=== PATIENT | female | born 1950 | race Caucasian/White ===

== ENCOUNTER → 2016-11-23 | Day surgery (SDC) | payer OTHER ==
[2016-11-20 12:37] VITALS: BMI 36.0
[~2016-11-23] VITALS: Ht 162.6 cm; Wt 95.0 kg
[~2016-11-23] MED LIST: ADVIN10/60 INH; AMLO-110 PO; ATROPINE SULFATE 0.1 MG/ML 5ML SYR IV PRN; BACITRACIN OINT 15 GM TUBE ONE; BUPIVACAINE 0.5 % 5 MG/1 ML MPF 30ML VIAL ONE; CARI350T28 PO; CLINDAMYCIN 600 MG/54 ML D5W IV ONE; CLINDAMYCIN IV 900 MG in DEXTROSE 5% ADD-VANTAGE 100ML 100 ML IV SCH; CLON0.5T3 PO; CYM/30 PO; FENTANYL CITRATE INJ 50 MCG/1 ML 2 ML VIAL IV PRN; FENTANYL CITRATE INJ 50 MCG/1 ML 2 ML VIAL ONE; FRS/40 PO; GLC/500 PO; HYDR12.55 PO; LACTATED RINGER'S 1000ML 1,000 ML IV SCH; LEVO75TA PO; LEVO75TA5 PO; LIDOCAINE HCL 1% 20 ML VIAL ONE; LIDOCAINE HCL 2% 2 ML VIAL (20MG/ML) ONE; LISI20TA3 PO; LOSA1TAB PO; MIDAZOLAM HCL 1 MG/ML 2ML VIAL ONE; MoRPHine SULFATE 2 MG/ML CARP IV PRN; MoRPHine SULFATE 4 MG/ML 1 ML CARP\\VIAL IV PRN; ONDA8TAB6 PO; ONDANSETRON INJ 2 MG/ML 2 ML VIAL IV PRN; ONDANSETRON INJ 2 MG/ML 2 ML VIAL ONE; OXYC-106 PO; OXYC7.5T65 PO; POTA20TA16 PO; PRLSR20 PO; PROM25TA9 PO; PROPOFOL IV EMULSION 10 MG/ML 20 ML VIAL IV ONE; SIMV20TA2 PO; SODIUM CHLORIDE 0.9% 1000ML 1,000 ML IV SCH; SYN75 PO; VENL150C PO; VNTHFA/IN INH; VSC/5 PO; ventolin inhaler INH
--- NOTE | 2016-11-23 12:01 | History & Physical Bridge Note ---
H&P Re-Evaluation Bridge Note: I have examined the patient, reviewed the History & Physical and in the interval since the performance of the History & Physical I have noted the following changes of clinical significance: No changes noted
[2016-11-23 12:04] VITALS: BP 172/88; PULSE 78; TEMP 36.8; O2SAT 96; Ht 162.6 cm; Wt 95.0 kg
--- NOTE | 2016-11-23 13:45 | Discharge Instructions ---
Discharge Instructions Date of Service Nov 23, 2016. Visit Reason for Visit: Diffuse Large B-Cell Lymphoma Discharge Discharge Diagnosis / Problem: S/P insertion port Discharge Goals Goal(s): Decrease discomfort, Improve function Activity Recommendations Activity Limitations: per Instructions/Follow-up section Lifting Limitations: none, gradually increase as tolerated Exercise/Sports Limitations: rest today, gradually increase as tolerated May Resume Sexual Activity: when tolerated Shower/Bathe: may shower/bathe in 3 days Driving or Machine Use: resume 3 days after discharge Anesthesia . Post Anesthesia Instructions: If you have had General Anesthesia or IV Sedation: * Do not drive today. * Resume driving when surgeon permits. * Do not make important decisions or sign legal documents today. * Call surgeon for: 1. Temperature elevations greater than 101 degrees F. 2. Uncontrollable pain. 3. Excessive bleeding. 4. Persistent nausea and vomiting. 5. Medication intolerance (nausea, vomiting or rash). * For nausea and vomiting use only clear liquids such as: tea, soda, bouillon until nausea subsides, then gradually increase diet as tolerated. * If you have any concerns or questions, call your surgeon's office. If physician is unavailable and it is an emergency, call 911 or go to the nearest emergency room. . Instructions / Follow-Up Instructions / Follow-Up keep the dressing on for 4 days, she can take a shower on 11/28/2016, follow up me in 1 week, . take po tylenol 650 mg po q6h as need for pain for 3 days only, Diet Recommendations Recommended Home Diet: resume previous diet Procedures Procedures Performed: Insertion of Infusaport Right Internal Jugular Pending Studies Studies pending at discharge: no Medical Emergencies . Who to Call and When: Medical Emergencies: If at any time you feel your situation is an emergency, please call 911 immediately. . Non-Emergent Contact Non-Emergency issues call your: Surgeon Call Non-Emergent contact if: you have a fever, temperature is above 100.5, your pain is not controlled, wound has increased drainage, wound has increased redness [phone] . . "Provider Documentation" section prepared by Lillie Arceo. . [place] Drug Monitoring Program Search Results: no issues identified
--- NOTE | 2016-11-23 13:47 | [facility] Post Operative Brief Note ---
Immediate Operative Summary Operative Date Nov 23, 2016. Pre-Operative Diagnosis Need for Long-Term Intravenous Access Post-Operative Diagnosis Need for Long-Term Intravenous Access Procedure(s) Performed Insertion of Infusaport Right Internal Jugular Surgeon Dr. Arceo Director Online Marketing Surgeon(s) none Estimated Blood Loss 5 ml Findings patent on right internal jungular vein Fluids (cc crystalloids) 500ml Specimens none per surgeon Drains none Anesthesia sadetion + local Complication(s) None Disposition Recovery Room / PACU
--- NOTE | 2016-11-23 13:59 | Anesthesiology Progress Note ---
Anesthesia Post Op Note Date & Time Nov 23, 2016 at 13:59 Vital Signs Pain Intensity: 0 Vital Signs Past 12 Hours Date Time Temp Pulse Resp B/P (MAP) Pulse Ox O2 Delivery O2 Flow Rate FiO2 11/23/16 13:55 36.4 59 16 122/74 99 Oxymask 3 11/23/16 13:45 59 16 130/81 100 Oxymask 5 11/23/16 13:39 36.2 69 16 145/85 98 Oxymask 10 11/23/16 12:04 36.8 78 20 172/88 (116) 96 Room Air Notes Mental Status: alert / awake / arousable, participated in evaluation Pt Amnestic to Procedure: Yes Nausea / Vomiting: adequately controlled Pain: adequately controlled Airway Patency, RR, SpO2: stable & adequate BP & HR: stable & adequate Hydration State: stable & adequate Anesthetic Complications: no major complications apparent
--- NOTE | 2016-11-23 14:16 | [facility] Operative Report ---
Operative Report Operative Date Nov 23, 2016. Pre-Operative Diagnosis Need for Long-Term Intravenous Access Post-Operative Diagnosis Need for Long-Term Intravenous Access Procedure(s) Performed Insertion of Infusaport Right Internal Jugular Surgeon Dr. Arceo Acquisitions Librarian Surgeon(s) none Estimated Blood Loss 5 ml Findings patent right internal jugular vein Fluids 500ml Specimens none per surgeon Drains none Anesthesia sadetion + local Complication(s) None Disposition Recovery Room / PACU Indications Patient is a 66 years old female older who needs port insertion insertion for chemotherapy. I discussed with patient about benefits, risk and alternative of procedure, I indicated the risks may include but not limit such as bleeding, infection, blood clot, injury lung, dysfunction of catheter, patient understand, she signed informed consent and I answered all questions. Description of Procedure We bring patient to the OR, put patient on superior position on OR table. I use ultrasound to locate the right internal jugular vein and marked it, patient received a SCDon bilateral to prevent DVT also patient received 900 mg clindamycin IV for prophylactic antibiotic. then the patient right-sided neck and the right upper chest that was appropriate for firm routine sterilization after timeout to injections of local anesthesia by using 1% lidocaine mixed with 0.5% Marcaine on the right side neck , and make a small incision about 0.5 cm incision, then using ultrasound relocate the internal trocar vein use a 16- gauge needle punctures of right internal jugular vein, pass wire through needle , then remove the needle, then use of fluoroscopy to confirm the wire into his SVC and then injections are local anesthesia in her right upper chest to creat the port pouch and hemostatic was obtained, passed the catheter through 2 incisions, passed sheid through wire, then the wire was removed, passed the catheter through sheid, the shied was removed, using fluror to confirm the tip of catheter is located at junction of SVC and right atrium, size the catheter, connect the port to catheter, using 2-0 prolene to fix the port on chest wall, close subcutanous layer using 2-0 suture, and close skin using 4-0 suture, put the dressing on, patient tolearted the procedure well, patient was transfered to recovery room in stable condition, all instrument and needle, sponze count correct time 2. I attest to the content of the Intraoperative Record and any orders documented therein. Any exceptions are noted below.
[2016-11-23 14:25] VITALS: BP 119/80; PULSE 58; PULSE 63; TEMP 36.4; TEMP 36.6; O2SAT 93
--- NOTE | 2016-11-23 14:34 | DIAGNOSTIC IMAGING REPORT ---
CHEST ONE VIEW PORTABLE CLINICAL HISTORY: Zhbesk-y-Pltb insertion. COMPARISON STUDY: No previous studies for comparison. FINDINGS: The tip of the right internal jugular Brlrqt-j-Fchp projects over the distal right internal jugular vein. There is no pneumothorax or pleural effusion. There is mild widening of right paratracheal stripe. Cardiac size is normal. There is no evidence of pulmonary edema. IMPRESSION: 1. No pneumothorax following placement of a right internal jugular Kgiomh-s-Yfni. Catheter tip projects over the distal right internal jugular vein. 2. Mild upper mediastinal widening. Electronically signed by: Boyd Clement M.D. 11/23/2016 2:33 PM Dictated Date/Time: 11/23/2016 2:31 PM
[2016-11-23 14:55] VITALS: BP 131/81; PULSE 67; O2SAT 91
[2016-11-23 15:10] VITALS: BP 112/79; PULSE 64; TEMP 36.6; O2SAT 93
== END | disposition home or self-care (01) ==
LOC: C.ACU 11:35
PROVIDERS: ATTEND Surgery
DX: C83.39 Diffuse large B-cell lymphoma, extranodal and solid organ sites (principal); I10 Essential (primary) hypertension; E11.9 Type 2 diabetes mellitus without complications; E03.9 Hypothyroidism, unspecified; F17.200 Nicotine dependence, unspecified, uncomplicated; F41.1 Generalized anxiety disorder; E78.00 Pure hypercholesterolemia, unspecified; J44.9 Chronic obstructive pulmonary disease, unspecified; Z72.0 Tobacco use; Z82.49 Family history of ischemic heart disease and other diseases of the circulatory system; Z80.3 Family history of malignant neoplasm of breast

== ENCOUNTER → 2017-02-09 | Outpatient (CLI) | payer OTHER ==
[~2017-02-09] MED LIST changes: -ATROPINE SULFATE 0.1 MG/ML 5ML SYR IV PRN; -BACITRACIN OINT 15 GM TUBE ONE; -BUPIVACAINE 0.5 % 5 MG/1 ML MPF 30ML VIAL ONE; -CLINDAMYCIN 600 MG/54 ML D5W IV ONE; -CLINDAMYCIN IV 900 MG in DEXTROSE 5% ADD-VANTAGE 100ML 100 ML IV SCH; -FENTANYL CITRATE INJ 50 MCG/1 ML 2 ML VIAL IV PRN; -FENTANYL CITRATE INJ 50 MCG/1 ML 2 ML VIAL ONE; -LACTATED RINGER'S 1000ML 1,000 ML IV SCH; -LIDOCAINE HCL 1% 20 ML VIAL ONE; -LIDOCAINE HCL 2% 2 ML VIAL (20MG/ML) ONE; -MIDAZOLAM HCL 1 MG/ML 2ML VIAL ONE; -MoRPHine SULFATE 2 MG/ML CARP IV PRN; -MoRPHine SULFATE 4 MG/ML 1 ML CARP\\VIAL IV PRN; -ONDANSETRON INJ 2 MG/ML 2 ML VIAL IV PRN; -ONDANSETRON INJ 2 MG/ML 2 ML VIAL ONE; -PROPOFOL IV EMULSION 10 MG/ML 20 ML VIAL IV ONE; -SODIUM CHLORIDE 0.9% 1000ML 1,000 ML IV SCH
--- NOTE | 2017-02-09 15:42 | DIAGNOSTIC IMAGING REPORT ---
A-PORT CHECK CLINICAL HISTORY: VASCULAR CATHETER DYSFUNCTION COMPARISON STUDY: Chest radiograph November 23, 2016. Fluoroscopy time: 1.5 minutes. FINDINGS: 8 fluoroscopic images were obtained. The patient's right internal jugular Njsizj-f-Yscn was cannulated by IV team. The position of the catheter has changed since exam November 23, 2016. The catheter is now coiled. The tip projects over the proximal right clavicle. However, the position is unclear on this examination. The catheter is intravenous in location. Apparent contrast extravasation from the catheter proximal to the tip is noted. This raises the possibility of catheter disruption. No contrast extravasation into the soft tissues was noted. IMPRESSION: Malpositioned right internal jugular Xsinig-z-Fjst. Catheter now coiled with indeterminate position of the tip and findings suggestive of catheter fracture/disruption. This catheter should not be utilized. Electronically signed by: Boyd Clement M.D. 02/09/2017 3:41 PM Dictated Date/Time: 02/09/2017 3:30 PM
== END | disposition home or self-care (01) ==
LOC: C.RAD 14:22
PROVIDERS: ATTEND Internal Medicine Hematology
DX: T82.42XA Displacement of vascular dialysis catheter, initial encounter (principal); Y82.8 Other medical devices associated with adverse incidents

== ENCOUNTER 2017-02-20 05:25 | Day surgery (SDC) | payer OTHER ==
[2017-02-16 09:27] VITALS: BMI 36.0
[~2017-02-20] VITALS: Ht 162.6 cm; Wt 95.0 kg
[~2017-02-20 05:25] MED LIST changes: -FRS/40 PO; -LEVO75TA5 PO; -LOSA1TAB PO; -OXYC7.5T65 PO; -VENL150C PO; -ventolin inhaler INH
[2017-02-20 05:52] VITALS: BP 149/88; PULSE 84; TEMP 36.7; O2SAT 99; Ht 162.6 cm; Wt 95.0 kg
[2017-02-20] MEDS ORDERED: LACTATED RINGER'S 1000ML 1,000 ML IV SCH (06:00)
[2017-02-20] MEDS ORDERED: CLINDAMYCIN 600 MG/54 ML D5W IV SCH (06:00)
[2017-02-20] MEDS ORDERED: BUPIVACAINE 0.5 % 5 MG/1 ML MPF 30ML VIAL ONE (06:35)
[2017-02-20] MEDS ORDERED: BACITRACIN OINT 15 GM TUBE ONE (06:35)
[2017-02-20] MEDS ORDERED: LIDOCAINE HCL 1% 20 ML VIAL ONE (06:35)
[2017-02-20] MEDS ORDERED: MIDAZOLAM HCL 1 MG/ML 2ML VIAL ONE (06:40)
[2017-02-20] MEDS ORDERED: PROPOFOL IV EMULSION 10 MG/ML 20 ML VIAL IV ONE ×4 (06:41→08:23)
[2017-02-20] MEDS ORDERED: LIDOCAINE HCL 2% 2 ML VIAL (20MG/ML) ONE (06:41)
[2017-02-20] MEDS ORDERED: FENTANYL CITRATE INJ 50 MCG/1 ML 2 ML VIAL ONE ×2 (06:41→08:44)
[2017-02-20] MEDS ORDERED: ONDANSETRON INJ 2 MG/ML 2 ML VIAL ONE (07:07)
[2017-02-20] MEDS ORDERED: ONDANSETRON INJ 2 MG/ML 2 ML VIAL IV PRN (08:30)
[2017-02-20] MEDS ORDERED: EpHEDrine SULFATE INJ 50 MG/ML AMP IV PRN (08:30)
[2017-02-20] MEDS ORDERED: PHENYLEPHRINE 100MCG/ML 5ML SYR IV PRN (08:30)
[2017-02-20] MEDS ORDERED: LABETALOL HCL IV 5 MG/ML 20ML IV PRN (08:30)
[2017-02-20] MEDS ORDERED: FLUMAZENIL 0.1 MG/1 ML 10 ML VIAL IV PRN (08:30)
[2017-02-20] MEDS ORDERED: MEPERIDINE HCL 25 MG/ML CARP IV PRN (08:30)
[2017-02-20] MEDS ORDERED: NALOXONE HCL 0.4 MG/1 ML VIAL/CARP IV PRN (08:30)
[2017-02-20] MEDS ORDERED: ATROPINE SULFATE 0.1 MG/ML 5ML SYR IV PRN (08:30)
[2017-02-20] MEDS ORDERED: OXYCODONE/ACETAMINOPHEN 5-325 TAB PO PRN (08:45)
--- NOTE | 2017-02-20 08:49 | Discharge Instructions ---
Discharge Instructions Date of Service Feb 20, 2017. Admission Reason for Admission: Aport Catheter Fracture Discharge Discharge Diagnosis / Problem: same Discharge Goals Goal(s): Decrease discomfort, Improve function Activity Recommendations Activity Limitations: as noted below No heavy lifting over 10 pounds for 1 week Do not keep left arm above head for long periods of time No activity that causes shaking or jostling No submerging incisions underwater for 2 weeks (no bathing, swimming, or hot tubs) No driving while taking narcotic pain medication . Instructions / Follow-Up Instructions / Follow-Up You may shower in 3 days, sponge bath and wash hair in meantime. Remove outer dressings in three days or when they need to access your aport. Keep steri strips on incisions for 7 days and then remove, they may fall off on their own that is okay. Follow-up with Dr. Arceo in 1 week, please call office at [phone] if you do not already have an appointment. Current Hospital Diet Patient's current hospital diet: Discharge Diet Recommended Diet: Regular Diet, Diabetes Type 2 Diet Procedures Procedures Performed: Removal of right sided port catheter, insertion of port catheter left subclavian. Pending Studies Studies pending at discharge: no Medical Emergencies . Who to Call and When: Medical Emergencies: If at any time you feel your situation is an emergency, please call 911 immediately. . Non-Emergent Contact Non-Emergency issues call your: Surgeon Call Non-Emergent contact if: you have a fever, temperature is above 101.5, your pain is not controlled, your pain is worsening, wound has increased drainage, wound has increased redness, wound has increased pain . "Provider Documentation" section prepared by Natalya Miles. . VTE Core Measure Inpt VTE Proph given/why not?: SCD's [place] Drug Monitoring Program Search Results: patient reviewed within database Drug Monitoring Findings: will not be prescribing pain medication as she received 125 pills of Percocet 10 /325 mg on 02/09/2017.
--- NOTE | 2017-02-20 08:54 | [facility] Post Operative Brief Note ---
Immediate Operative Summary Operative Date Feb 20, 2017. Pre-Operative Diagnosis Dysfunctioning right sided port catheter Post-Operative Diagnosis Same as preop. Procedure(s) Performed Removal of right sided port catheter, insertion of port catheter left subclavian. Surgeon Dr. Arceo Car Dumper Operator Surgeon(s) ELLIOTT Lorenzana Estimated Blood Loss 10 ml Findings patent on SVC, dysfunction old port catheter Specimens A: Removed port and catheter from right side. Drains none Anesthesia sedation + local Complication(s) None Disposition Recovery Room / PACU
[2017-02-20] MEDS: FENTANYL CITRATE INJ 50 MCG/1 ML 2 ML VIAL IV PRN ×2 (08:57→09:15)
--- NOTE | 2017-02-20 09:02 | DIAGNOSTIC IMAGING REPORT ---
CHEST ONE VIEW PORTABLE HISTORY: 67 years-old Female s/p placement of right subclavian aport catheter COMPARISON: Chest radiograph 11/23/2016 TECHNIQUE: Portable upright AP view of the chest FINDINGS: Cardiac silhouette is within normal limits. There is atherosclerosis of the aorta. There has been interval removal of the previously noted right internal jugular Jlfupn-n-Grdp catheter and placement of a left subclavian Uuulew-a-Oqad catheter with distal tip terminating in the region of the right atrium. There is no pneumothorax, pleural effusion, focal airspace consolidation or overt pulmonary edema. The bones of the chest are grossly intact. Moderate left AC joint degenerative change. IMPRESSION: Status post placement of a left subclavian Xekjcs-c-Wgzm catheter with distal tip terminating in the region of the right atrium. No postprocedural pneumothorax. The above report was generated using voice recognition software. It may contain grammatical, syntax or spelling errors. Electronically signed by: Yariel Yee M.D. 02/20/2017 9:00 AM Dictated Date/Time: 02/20/2017 8:58 AM
[2017-02-20 09:08] VITALS: PULSE 64; O2SAT 100
[2017-02-20] MEDS ORDERED: HydrALAZINE HCL 20 MG/ML VIAL ONE (09:12)
[2017-02-20] MEDS ORDERED: HydrALAZINE HCL 20 MG/ML VIAL IV. STA (09:13)
[2017-02-20] MEDS ORDERED: ALBUT/IPRATROP 3MG/0.5MG NEB 3 ML VIAL INH ONE (09:15)
[2017-02-20 09:40] VITALS: BP 136/77; PULSE 70; TEMP 36.7; O2SAT 93
[2017-02-20 10:10] VITALS: BP 133/85; PULSE 83; TEMP 36.8; O2SAT 95
--- NOTE | 2017-02-20 10:36 | Anesthesiology Progress Note ---
Anesthesia Post Op Note Date & Time Feb 20, 2017 at 10:35 Vital Signs Pain Intensity: 2 Vital Signs Past 12 Hours Date Time Temp Pulse Resp B/P (MAP) Pulse Ox O2 Delivery O2 Flow Rate FiO2 02/20/17 10:10 36.8 83 20 133/85 95 Room Air 02/20/17 09:40 36.7 70 20 136/77 93 Room Air 02/20/17 09:25 36.2 70 14 137/94 96 Nebulizer 02/20/17 09:15 62 13 152/93 100 Nebulizer 02/20/17 09:08 64 13 100 Mask 9.0 02/20/17 09:05 64 20 173/92 100 Room Air 02/20/17 08:55 80 15 164/104 99 Oxymask 10 02/20/17 08:45 69 13 154/107 99 Oxymask 10 02/20/17 08:39 36.8 79 13 116/87 100 Oxymask 10 02/20/17 05:52 36.7 84 18 149/88 (108) 99 Room Air Notes Mental Status: alert / awake / arousable, participated in evaluation Pt Amnestic to Procedure: Yes Nausea / Vomiting: adequately controlled Pain: adequately controlled Airway Patency, RR, SpO2: stable & adequate BP & HR: stable & adequate Hydration State: stable & adequate Anesthetic Complications: no major complications apparent
--- NOTE | 2017-02-20 11:04 | OPERATIVE REPORT ---
DATE OF OPERATION: 02/20/2017 PREOPERATIVE DIAGNOSIS: Dysfunction A-port catheter on the right side chest wall. POSTOPERATIVE DIAGNOSIS: Same. OPERATION: Removal of old Ziih-N-Chprcwhb on the right side chest wall, insertion new Sbyt-M-Dzflhbpt on the left subclavian vein. SURGEON: Dr. Lillie Arceo. PALLIATIVE CARE SPECIALIST: Natalya Miles PA-C. ANESTHESIA: Conscious sedation plus local. ESTIMATED BLOOD LOSS: About 10 mL. FINDINGS: Dysfunction of the Tkxs-Z-Tarndqki and patent of SVC. COMPLICATIONS: None. INDICATIONS FOR THE PROCEDURE: This is a 67-year-old female who presented dysfunctional Bido-Q-Jobuovxq. The patient had the Goqf-B-Pbyqropp insertion more than 4 months ago and now the Bwyz-H-Tjciypqh nonfunction. The patient required removal dysfunctional Hpfz-W-Xsauwxbu, insertion new one. I did talk to the patient about the benefit and risk, alternate procedure. I indicated the risks may include but not limited such as bleeding, infection, injury to vessel, injury to nevers, blood clot, dysfunction Bmim-J-Pmuflrvw. The patient understands. She signed informed consent and I answered all questions. DETAILS OF PROCEDURE: We brought the patient to the OR, put the patient on the Trendelenburg position. The patient received SCD on bilateral legs to prevent DVT. Also, the patient received 600 mg of clindamycin IV for prophylactic antibiotic. The patient received conscious sedation by the anesthesiology. The patient's bilateral neck and upper chest was prepped and draped in routine sterile fashion. After a timeout, we injected local anesthesia on the right side chest just above the port and then we made about a 3 cm incision and completed removal of the Rxhx-W-Tmjdcagy without difficulty and most likely the Crzv-Z-Nytxsazg is malposition and we completely moved. No infection sign. Then we closed the incision in 2 layers, the first layer subcutaneous layer by using 2-0 Vicryl continuous running, closed the skin by using 4-0 Vicryl continuous running, then put the dressing on. Now we moved onto the left side of the chest. Based on the patient has significant obesity and short neck and we tried 1 time with ultrasound to locate the left side of the internal jugular vein is very difficult because the patient used the neck and chest moved to breath. At this moment we switched to puncture the left side subclavian vein and easy blood return. We passed the wire over the needle and then we used fluoro to confirm the wire located in the SVC. Then we passed the dilator through the wire and then we removed the dilator sheath and wire, leave the ultrasound sheath in. Then we passed the catheter and then used fluoroscopy again to locate the catheter tip and locate on the junction between the SVC to the right atrium, then we injected the local on the right chest, again using 1% lidocaine mixed with 0.5% Marcaine and made about 6 cm incision to create the port pouch, hemostasis was obtained. Then we sized the catheter connected to the port using 2-0 Prolene to fix the port on the left side chest wall at 3 points, then I used 2-0 Vicryl to close subcutaneous layer continuous running, closed skin by using 4-0 Vicryl. Then I used heparinized saline to puncture the port easily blood returned and injection 10 mL heparinized saline. Then, we put the dressing on and the patient tolerated the procedure well. After the procedure, the patient transferred to recovery room in stable condition. All the instrument, needle and sponge count correct x2 at the end of the case. After the procedure, I did talk to the patient about the OR finding and procedure we did. She understands. We will follow up the patient in 1 week. I attest to the content of the Intraoperative Record and any orders documented therein. Any exceptions are noted below. MORELIA
[2017-02-21] MEDS ORDERED: CLINDAMYCIN 600 MG/54 ML D5W IV ONE (06:00)
== END 2017-02-20 10:30 | disposition home or self-care (01) ==
LOC: C.ACU 05:25
PROVIDERS: ATTEND Surgery
DX: T82.49XA Other complication of vascular dialysis catheter, initial encounter (principal); Y83.1 Surgical operation with implant of artificial internal device as the cause of abnormal reaction of the patient, or of later complication, without mention of misadventure at the time of the procedure; C83.39 Diffuse large B-cell lymphoma, extranodal and solid organ sites; J45.909 Unspecified asthma, uncomplicated; E11.9 Type 2 diabetes mellitus without complications; Z86.73 Personal history of transient ischemic attack (TIA), and cerebral infarction without residual deficits; J44.9 Chronic obstructive pulmonary disease, unspecified; I10 Essential (primary) hypertension; E03.9 Hypothyroidism, unspecified; F17.200 Nicotine dependence, unspecified, uncomplicated